=== PATIENT | male | born 1995 | race Caucasian/White ===

== ENCOUNTER 2017-11-01 16:46 | Emergency (ER) | payer OTHER | END 2017-11-01 16:51 | disposition left against medical advice (07) | LOC: M ED 16:46 | DX: Z53.29 Procedure and treatment not carried out because of patient's decision for other reasons (principal) ==

== ENCOUNTER 2018-07-22 11:38 | Emergency (ER) | payer OTHER ==
[~2018-07-22] VITALS: Ht 195.6 cm; Wt 109.1 kg
[~2018-07-22 11:38] MED LIST: IBUP-1022 PO
--- NOTE | 2018-07-22 12:59 | REP ---
Left tibia-fibula four views : There is no fracture or dislocation. Mineralization and joint spaces are normal. There are no calcifications or foreign bodies. Impression: Negative left tibia-fibula . Electronically Signed by Eliud Rivera MD 07/22/2018 12:50 P
[2018-07-22] MEDS ORDERED: ADACEL/BOOSTRIX VACCINE (DIPHTH/PERTUSS/ACELL/TETANUS)0.5ML SYR (90715) IM ONE (13:00)
[2018-07-22 13:05] VITALS: BP 125/79
== END 2018-07-22 13:11 | disposition home or self-care (01) ==
LOC: M ED 11:38
DX: S80.812A Abrasion, left lower leg, initial encounter (principal); W20.8XXA Other cause of strike by thrown, projected or falling object, initial encounter; Y92.89 Other specified places as the place of occurrence of the external cause; Y99.0 Civilian activity done for income or pay; F17.200 Nicotine dependence, unspecified, uncomplicated

== ENCOUNTER → 2020-07-09 | Outpatient (CLI) | payer MEDICAID | LOC: M OUTALCOH 08:54 | PROVIDERS: ATTEND Psychiatry & Neurology Psychiatry | DX: F12.20 Cannabis dependence, uncomplicated (principal); F15.20 Other stimulant dependence, uncomplicated; F17.200 Nicotine dependence, unspecified, uncomplicated ==

== ENCOUNTER 2020-07-13 16:44 | Outpatient (RCR) | payer MEDICAID | END 2020-07-14 | LOC: M OUTALCOH 16:44 | PROVIDERS: ATTEND Psychiatry & Neurology Psychiatry | DX: F12.20 Cannabis dependence, uncomplicated (principal); F15.20 Other stimulant dependence, uncomplicated; F17.200 Nicotine dependence, unspecified, uncomplicated ==

== ENCOUNTER 2020-08-03 15:39 | Outpatient (RCR) | payer MEDICAID | END 2020-08-13 | LOC: M OUTALCOH 15:39 | PROVIDERS: ATTEND Psychiatry & Neurology Psychiatry | DX: F12.20 Cannabis dependence, uncomplicated (principal); F15.20 Other stimulant dependence, uncomplicated; F17.200 Nicotine dependence, unspecified, uncomplicated ==